=== PATIENT | female | born 1950 | race American Indian/Alaskan Native ===

== ENCOUNTER → 2023-10-01 10:25 | Outpatient (REF) | payer MEDICARE, BC, SELFPAY | LOC: RAD 10:25 | PROVIDERS: ATTENDING PHYSICIAN Internal Medicine; FAMILY PHYSICIAN Family Medicine | DX: R13.19 Other dysphagia (principal) | CPT/HCPCS: 74246 ==

== ENCOUNTER → 2023-10-25 06:25 | Day surgery (SDC) | payer MEDICARE, BC, SELFPAY ==
[2023-10-25 07:57] LABS: Glucose - Point of Care 159 mg/dl (70-99)
== END ==
LOC: GI 06:25
PROVIDERS: ATTENDING PHYSICIAN Internal Medicine
DX: K44.9 Diaphragmatic hernia without obstruction or gangrene (principal); K25.9 Gastric ulcer, unspecified as acute or chronic, without hemorrhage or perforation; K31.89 Other diseases of stomach and duodenum; K30 Functional dyspepsia; R13.10 Dysphagia, unspecified
CPT/HCPCS: 43239; 88305; 82962; 88342

== ENCOUNTER 2024-01-25 06:29 | Day surgery (SDC) | payer MEDICARE, BC, SELFPAY ==
[2024-01-25 08:48] LABS: Glucose - Point of Care 152 mg/dl (70-99)
== END 2024-01-25 09:50 | disposition home or self-care (01) ==
LOC: GI 06:29
PROVIDERS: ATTENDING PHYSICIAN Internal Medicine
DX: K30 Functional dyspepsia (principal); K31.89 Other diseases of stomach and duodenum; Z87.11 Personal history of peptic ulcer disease
CPT/HCPCS: 43239; 88305; 82962; 88342

== ENCOUNTER 2024-01-31 09:33 | Emergency (ER) | payer MEDICARE, BC, SELFPAY ==
[2024-01-31 09:42] VITALS: BP 166/80
[2024-01-31 10:09] VITALS: BP 151/81
--- NOTE | 2024-01-31 10:24 | ED.GENMED ---
History of Present Illness
General
Chief Complaint: Abdominal Symptoms
Source: patient
Exam Limitations: none
Time Seen by Provider: 01/31/24 10:01
History of Present Illness
History of Present Illness:
73-year-old female [id number] diabetic presents with an uneasy sensation in her upper abdomen with occasional palpitations. She has a cardia carleen at home which told her she may be in atrial fibrillation. This is intermittent over the
past several days. She had an endoscopy recently. However the symptoms have increased since her endoscopy. She notes normal bowel habits of which she is moving her stools 3-4 times a day. Denies vomiting fever chest pain or shortness of breath.
No other complaints at this time
Phy Exam
Physical Exam
Physical Exam:
General: Well-appearing nontoxic female no acute respiratory distress
HEENT: Normocephalic atraumatic
Heart: Regular rate and rhythm no murmurs
Lungs: Clear no wheeze
Abdomen is soft nontender nondistended no guarding rebound normal bowel sounds
Extremities: No cyanosis or edema
Skin warm no rash
Course
Orders/Labs/Results
Orders:
Orders
01/31/24 09:46
Electrocardiogram (*1) Urgent
Reason for Study: Palpitations
EKG- Treatment ONCE
01/31/24 10:25
Comprehensive Metabolic Panel Urgent
Lipase Urgent
TSH Reflex To Free T4 Urgent
Troponin I Urgent
01/31/24 10:56
Complete Blood Count/With Diff Urgent
Abnormal Lab Results
01/31/24 01/31/24
10:25 10:56
RDW 11.2 L %
(11.5-14.5)
MPV 10.7 H fL
(7.4-10.4)
BUN 21 H mg/dl
(7-17)
Creatinine 0.5 L mg/dL
(0.6-1.0)
Glucose 152 H mg/dl
(70-99)
Alkaline Phosphatase 37 L U/L
(38-126)
01/31/24 10:56
01/31/24 10:25
Vital Signs
Initial and Last Documented VS:
Initial Vital Signs
Temp Pulse Resp BP Pulse Ox
97.9 F 83 18 166/80 100
01/31/24 09:42 01/31/24 09:42 01/31/24 09:42 01/31/24 09:42 01/31/24 09:42
Last Documented Vital Signs
Temp Pulse Resp BP Pulse Ox
97.9 F 99 25 125/63 98
01/31/24 09:42 01/31/24 12:15 01/31/24 12:15 01/31/24 12:00 01/31/24 12:15
MDM/Problems Addressed
Differential Diagnosis Includes:
Patient with uneasy sensation in the upper abdomen and chest. Hard to describe but sometimes feels palpitations. Triage note says abdominal cramps however these are not new she deals with these on a daily basis and this is the reason why she was
having an endoscopy. On exam her abdomen is benign no indication for any imaging at this point. Will check cardiac workup. EKG shows sinus rhythm with PVCs. Will check troponin lipase TSH as well
*Critical Care Note
Total Time (30-74mins, 75-104mins- exclusive of procedures): Not Applicable
Update Note
Update Note:
Labs reviewed normal troponin no arrhythmias noted on monitor here. Suspect palpitations. There were some PVCs noted on the EKG. Recommend she follow-up with cardiology but no indication for admission stable for discharge
ED Attending Note
-
Portions of this chart may have been created with voice recognition software.� Occasional wrong word or��sound alike� substitutions may have occurred due to the inherent limitations of voice recognition software.
Discharge Plan
Departure
Patient Disposition: Home (Routine Discharge)
Date of Disposition: 01/31/24
Time of Disposition: 12:22
Patient with high blood pressure during this ER visit?: No
Discharge Problem:
Palpitations
Instructions: Palpitations ED
Referrals:
UNKNOWN - PT DOES,NOT KNOW [Family Provider] -
Activity Restrictions/Additional Instructions:
Return here if worse otherwise follow-up with your cardiology team. There is no arrhythmias noted on today's workup
Interventions
Interventions:
*Risk Screen - Suicide Last Done: 01/31/24 09:42
*General Assessment Last Done: 01/31/24 09:42
*Neglect/Abuse Screening Last Done: 01/31/24 09:42
ED- Fall Risk Assessment Last Done: 01/31/24 10:17
*ED COVID-19 Vaccine History Last Done: 01/31/24 09:42
VS-Wvvnoz-Giijilkhyy Assessment Last Done: 01/31/24 10:17
Discharge Date and Time
Print Language: AZERI
[2024-01-31 10:48] LABS: ALT (SGPT) 26 U/L (0-35); AST (SGOT) 28 U/L (14-36); Alkaline Phosphatase 37 U/L (38-126); Blood Urea Nitrogen 21 mg/dl (7-17); Calcium 10.2 mg/dl (8.4-10.2); Carbon Dioxide 25 mmol/L (22-30); Chloride 100 mmol/L (98-107); Glucose 152 mg/dl (70-99); Lipase 48 U/L (23-300); Potassium 4.9 mmol/L (3.5-5.1); Sodium 135 mmol/L (135-145); Total Protein 7.9 g/dl (6.3-8.2); eGFR > 60.00
[2024-01-31 10:56] LABS: Troponin I 0.012 ng/ml
[2024-01-31 11:00] VITALS: BP 116/63
[2024-01-31 11:10] LABS: % Basophils 0.4 % (0-2); % Eosinophils 2.9 % (0-6); % Immature Granulocytes 0.1 % (0-0.5); % Lymphocytes 21.2 % (20.5-51.1); % Neutrophils 70.4 % (42.2-75.2); Absolute Eosinophils 0.2 10^3/uL (0-0.7); Absolute Lymphocytes 1.7 10^3/uL (1.2-3.4); Absolute Monocytes 0.4 10^3/uL (0.1-0.6); Absolute Neutrophils 5.8 10^3/uL (1.4-6.5); Hematocrit 37.4 % (37.0-47.0); Hemoglobin 12.7 g/dL (12.0-16.0); Mean Corpuscular Hgb 29.4 pg (27.0-31.0); Mean Corpuscular Volume 86.6 fL (81.0-99.0); Mean Platelet Volume 10.7 fL (7.4-10.4); Nucleated Red Blood Cells % 0 %; Platelet Count 219 10^3/uL (130-400); Red Blood Cell Count 4.32 10^6/uL (4.20-5.40); Red Cell Dist. Width 11.2 % (11.5-14.5); White Blood Cell Count 8.2 10^3/uL (4.8-10.8)
--- NOTE | 2024-01-31 11:21 | EDRN ---
Per pt request pt given crackers and diet jesus walker.
[2024-01-31 12:00] VITALS: BP 125/63
[2024-01-31 14:34] LABS: TSH Reflex To Free T4 1.79 uIU/ml (0.47-4.68)
== END 2024-01-31 12:27 | disposition home or self-care (01) ==
LOC: EMR 09:33
PROVIDERS: Physician Assistant; EMERGENCY PHYSICIAN Emergency Medicine
DX: R00.2 Palpitations (principal); I49.3 Ventricular premature depolarization; R20.8 Other disturbances of skin sensation; E11.9 Type 2 diabetes mellitus without complications
CPT/HCPCS: 99284; 80053; 83690; 84443; 84484; 85025; 93005

== ENCOUNTER → 2024-02-28 10:00 | Outpatient (REF) | payer MEDICARE, BC, SELFPAY | LOC: HWWDC 10:00 | PROVIDERS: ATTENDING PHYSICIAN Family Medicine | DX: Z12.31 Encounter for screening mammogram for malignant neoplasm of breast (principal) | CPT/HCPCS: 77063; 77067 ==

== ENCOUNTER → 2024-10-13 08:19 | Outpatient (REF) | payer MEDICARE, BC, SELFPAY | LOC: RCS 08:19 | PROVIDERS: ATTENDING PHYSICIAN Internal Medicine; FAMILY PHYSICIAN Family Medicine | DX: R07.89 Other chest pain (principal); R00.2 Palpitations; E78.2 Mixed hyperlipidemia | CPT/HCPCS: 93225; 93226 ==

== ENCOUNTER → 2024-10-16 09:02 | Outpatient (REF) | payer MEDICARE, BC, SELFPAY | LOC: HWRCS 09:02 | PROVIDERS: ATTENDING PHYSICIAN Internal Medicine; FAMILY PHYSICIAN Family Medicine | DX: E78.2 Mixed hyperlipidemia (principal); R07.89 Other chest pain; R00.2 Palpitations | CPT/HCPCS: 93306 ==

== ENCOUNTER → 2024-10-28 07:15 | Outpatient (REF) | payer MEDICARE, BC, SELFPAY | LOC: HWRCS 07:15 | PROVIDERS: ATTENDING PHYSICIAN Internal Medicine; FAMILY PHYSICIAN Family Medicine | DX: R07.89 Other chest pain (principal); R00.2 Palpitations; E78.2 Mixed hyperlipidemia; R94.31 Abnormal electrocardiogram [ECG] [EKG] | CPT/HCPCS: 78452; 93017; A9500; J2785 ==

== ENCOUNTER → 2025-01-26 08:44 | Outpatient (REF) | payer MEDICARE, BC, SELFPAY ==
[2025-01-26 11:06] LABS: Hematocrit 41.9 % (37.0-47.0); Hemoglobin 14.4 g/dL (12.0-16.0); Mean Corp Hgb Conc. 34.4 g/dL (33.0-37.0); Mean Corpuscular Volume 85.2 fL (81.0-99.0); Nucleated Red Blood Cells % 0 %; Platelet Count 201 10^3/uL (130-400); Red Cell Dist. Width 11.4 % (11.5-14.5)
[2025-01-26 12:38] LABS: ALT (SGPT) 61 U/L (0-35); AST (SGOT) 33 U/L (14-36); Albumin 4.5 g/dl (3.5-5.0); Alkaline Phosphatase 63 U/L (38-126); Blood Urea Nitrogen 22 mg/dl (7-17); Calcium 9.9 mg/dl (8.4-10.2); Carbon Dioxide 28 mmol/L (22-30); Chloride 100 mmol/L (98-107); Glucose 138 mg/dl (70-99); Potassium 4.9 mmol/L (3.5-5.1); Sodium 136 mmol/L (135-145); Total Protein 7.6 g/dl (6.3-8.2); eGFR > 60.00
== END ==
LOC: SDSPAT 08:44
PROVIDERS: ATTENDING PHYSICIAN Internal Medicine Cardiovascular Disease; FAMILY PHYSICIAN Family Medicine; OTHER PHYSICIAN Internal Medicine
DX: I47.10 Supraventricular tachycardia, unspecified (principal)
CPT/HCPCS: 36415; 80053; 85025; 93005